=== PATIENT | male | born 1985 | race Native Hawaiian/Other Pacific Islander ===

== ENCOUNTER 2021-04-10 08:22 | Observation (INO) | payer BC ==
[2021-04-10] VITALS (10 sets, daily range): BP systolic 133–161; BP diastolic 66–101; TEMP 98.6
[~2021-04-10] VITALS: Ht 190.5 cm; Wt 165.2 kg
[2021-04-10 09:04] LABS: PLATELET COUNT 234 K/uL (142-355)
[2021-04-10 09:12] LABS: POTASSIUM 4.3 mmol/L (3.6-5.2)
[2021-04-11] VITALS: BP 155/85
[2021-04-11 02:00] VITALS: BP 143/83
[2021-04-11 04:00] VITALS: BP 142/94; TEMP 97.6
[2021-04-11 05:14] VITALS: BP 142/92; TEMP 97.6; Ht 190.5 cm; Wt 165.2 kg
[2021-04-11 08:00] VITALS: BP 161/72; TEMP 97.7
[2021-04-11 12:00] VITALS: BP 156/82; TEMP 97.6
== END 2021-04-11 16:11 | disposition short-term general hospital (02) ==
LOC: ED 08:22 → EDBD 08:22 → MED/SURG 23:00
PROVIDERS: Family Medicine; ADMIT Family Medicine; ATTEND Family Medicine
DX: K35.890 Other acute appendicitis without perforation or gangrene (principal); E66.8 Other obesity
CPT/HCPCS: 36415; 80053; 81000; 82150; 83690; 85027; 87635; 96360; 96361; 96365; 96366; 99220; 99284; G0378; J0696; J1885; J2543; U0003